=== PATIENT | male | born 1990 | race African-American/Black ===

== ENCOUNTER 2023-06-01 08:45 | Emergency (ER) | payer MEDICAID, SELFPAY ==
--- NOTE | ~2023-06-01 | XR_ITS ---
EXAMINATION: XR SHOULDER, LEFT CLINICAL INFORMATION: Decreased mobility and pain COMPARISON: None available. TECHNIQUE: AP external rotation, Grashey, scapular Y views of the left shoulder. FINDINGS: The bones and soft tissues are normal. No fracture. Glenohumeral and acromioclavicular alignment is anatomic with normal joint space. No abnormal soft tissue calcifications. XR/XR shoulder LT min 2V IMPRESSION: Normal left shoulder.
[2023-06-01 09:05] VITALS: BP 133/82; PULSE 82; RESP 16; TEMP 37.2; O2SAT 98; BMI 25.8
--- NOTE | 2023-06-01 11:56 | ED_ITS ---
HPI - Extremity Problem General Chief complaint: Extremity Injury, Upper Stated complaint: L shoulder inj Time Seen by Provider: 06/01/23 11:56 Source: patient Mode of arrival: ambulatory Limitations: no limitations History of Present Illness HPI Narrative: Patient is a 33-year-old male presenting to the emergency department with complaint of left shoulder pain since yesterday. Reports that he was peeing a ?bear devil? and was jumping on a trampoline, landed on left shoulder. Reports pain with range of motion. Denies any numbness or tingling to left arm. Did not take any [id number] medications for his symptoms. MD Complaint: extremity pain and joint pain Onset (ago): hour(s) Pain Consistency: constant Location: left and upper extremity Quality: aching Radiation: none Relieving factors: rest Exacerbating factors: range of motion Associated symptoms: denies other symptoms Related Data Previous Rx's Medication Instructions Recorded cyclobenzaprine 5 mg tablet 5 mg PO TID PRN muscle spasm #10 06/01/23 tabs ibuprofen 600 mg tablet 600 mg PO Q6H PRN pain #20 tabs 06/01/23 lidocaine 5 % topical patch 1 patch topical DAILY #15 ea 06/01/23 Allergies Allergy/AdvReac Type Severity Reaction Status Date / Time No Known Allergies Allergy Verified 06/01/23 09:05 Review of Systems Review of Systems: As per HPI. Yes all other systems are reviewed and are negative Constitutional: Constitutional: Reports as per HPI [facility] Social History Social History Advance Directives: No Physical Exam Vital Signs: Vital Signs: Last Vital Signs Temp 98.9 F 06/01/23 09:05 Pulse 82 06/01/23 09:05 Resp 16 06/01/23 09:05 BP 133/82 06/01/23 09:05 Pulse Ox 98 06/01/23 09:05 O2 Del Method Room Air 06/01/23 09:05 BMI result Body Mass Index 25.8 Vital signs have been reviewed and appear to be correct. Blood pressure normal. Heart rate normal. Respiratory rate normal. Temperature normal. Oxygen saturation normal. Const: General: cooperative, healthy appearing and no acute distress Orientation/consciousness: oriented to person, oriented to place, oriented to time and patient oriented x3 Limitations: no limitations HEENT: Head: Yes normocephalic and Yes atraumatic Ears: external ears normal General nose exam: Normal external nose present Face and sinus: Yes face symmetric Mouth: oropharynx normal and moist mucous membranes Throat: Yes uvula midline Eyes: Pupils: Equal, round and reactive pupils present Neck: Neck: Yes normal visual inspection and Yes supple Resp: Effort & Inspection: normal respiratory effort and able to speak in complete sentences Auscultation: clear to auscultation bilaterally Cardio: Rate: regular rate Rhythm: regular rhythm Heart sounds: S1 normal heart sound present and S2 normal heart sound present GI: Palpation (GI): Soft to palpation and nontender Auscultation: normoactive bowel sounds : General: Yes no CVA tenderness Back/Spine/Pelvis: Back: no CVA tenderness Skin: General skin exam: elasticity normal and turgor normal Neuro: General: oriented to person, oriented to place, oriented to time, patient oriented x3, moves all extremities, no focal motor deficits and CN's II- XI intact bilaterally Cranial nerves: Yes Equal, round and reactive pupils present Cognition (Neuro): normal cognition Motor exam (neuro): 5/5 motor strength present throughout Sensory Exam: Normal double simultaneous stimulation for sensation Extrem: General: Yes full ROM, Yes no pedal edema and Yes no calf tenderness Left upper extremity: normal to inspection, normal capillary refill, shoulder/upper arm Details: inspection abnormal and abnormal ROM (limited abduction due to pain); no tenderness and hand Details: vascular exam Details: radial pulse present Psych: Mental Status: mental status grossly normal Affect: normal affect Thought process: Normal thought process present Medical Decision Making Medical Decision Making MDM Narrative: Patient is a 33-year-old male presenting to the emergency department with complaint of left shoulder pain since yesterday. Discharge Plan Discharge Clinical Impression: Left shoulder strain Patient Disposition: Home, Self-Care Instructions: Muscle Strain (DC), Rotator Cuff Injury (ED), Rotator Cuff Injury Exercises (DC) Additional Instructions: You are evaluated in the emergency department today for left shoulder pain. Your x-ray did not show evidence of fracture. You are being prescribed cyclobenzaprine which is a muscle relaxer that you can take every 8 hours as needed, you are also being prescribed topical lidocaine patches which she can wear for up to 12 hours in a 24 hour period. Do not apply heat directly over the patches. You can take 600 mg ibuprofen or 650 mg Tylenol every 6 hours as needed for pain. If necessary, you can alternate these medications every 3 hours. For example, at noon take Tylenol, then at 3:00 p.m. take ibuprofen, then at 6:00 p.m. take Tylenol, etc.. You are being referred to Orthopedics for further evaluation of your injury. Please call their office to schedule an appointment. Return to the emergency department if you develop new weakness, numbness, tingling, or change of color to your arm. Prescriptions: New ibuprofen 600 mg tablet 600 mg PO Q6H PRN (Reason: pain) Qty: 20 0RF cyclobenzaprine 5 mg tablet 5 mg PO TID PRN (Reason: muscle spasm) Qty: 10 0RF lidocaine 5 % adhesive patch,medicated 1 patch topical DAILY Qty: 15 0RF Rx Instructions: leave on most painful area for up to 12 hrs Referrals: [facility] [place] [facility] [Provider Group]
== END 2023-06-01 12:14 | disposition home or self-care (01) ==
PROVIDERS: Emergency Provider Emergency Medicine Emergency Medical Services
DX: S46.912A Strain of unspecified muscle, fascia and tendon at shoulder and upper arm level, left arm, initial encounter (principal); M25.512 Pain in left shoulder; X58.XXXA Exposure to other specified factors, initial encounter; Y93.9 Activity, unspecified; Y92.9 Unspecified place or not applicable; Y99.9 Unspecified external cause status
CPT/HCPCS: 73030; 99282; 99283

== ENCOUNTER 2024-07-24 19:01 | Emergency (ER) | payer OTHER, SELFPAY ==
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
[2024-07-24 19:13] VITALS: BP 134/82; PULSE 74; RESP 18; TEMP 36.4; O2SAT 98; BMI 24.8
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
[2024-07-24 21:02] VITALS: BP 101/69; PULSE 75; RESP 16; TEMP 36.7; O2SAT 95
[2024-07-24 21:09] VITALS: BP 101/69; PULSE 75; RESP 16; TEMP 36.7; O2SAT 95
== END 2024-07-24 21:11 | disposition home or self-care (01) ==
LOC: HO.ED 21:10
PROVIDERS: Emergency Provider Emergency Medicine
DX: Z04.1 Encounter for examination and observation following transport accident (principal); R51.9 Headache, unspecified; M54.2 Cervicalgia; M54.6 Pain in thoracic spine
CPT/HCPCS: 70450; 72070; 72125; 99282; 99284

== ENCOUNTER → 2024-07-24 19:17 | Outpatient (BNV) | payer MEDICAID, SELFPAY | PROVIDERS: Emergency Provider Emergency Medicine; Visit Provider Radiology Diagnostic Radiology | DX: R51.9 Headache, unspecified (principal); M54.50 Low back pain, unspecified | CPT/HCPCS: 70450; 72070; 72125 ==